=== PATIENT | female | born 1970 | race Caucasian/White ===

== ENCOUNTER → 2016-08-26 | Outpatient (CLI) | payer BC ==
--- NOTE | ~2016-08-26 | US6 ---
[facility] A Service of [facility] RADIOLOGY TEXT RESULTS PATIENT: TING DALEY LOCATION: CGUS : 70 UNIT #: [id number] AGE: [address]: SUJIT CERDA MD SEX: F ORDER DR: [id number] [facility]. [place], [place] [address] [id number] O MR#: [id number] Acc #: [id number] NAME: TING DALEY. : 1970 SEX: F STUDY DATE/TIME: 08/26/2016 10:28 UNIT: [facility] ROOM: STUDY DESCRIPTION: US Abdominal Limited Attending Physician: Sujit Cerda Referring Physician: Sujit Cerda Ordering Physician: Physician Non-Staff Primary Care Physician: Sjuit Cerda MEDICAL IMAGING REPORT This report is preliminary unless electronic signature is present EXAM Right upper quadrant ultrasound HISTORY Right upper quadrant pain for 1 year, progressively increasing. FINDINGS Ultrasound examination of the right upper quadrant demonstrates no gallstones, gallbladder wall thickening or gallbladder distension. No biliary ductal dilatation. The common bile duct measures 2 mm in diameter. No hepatic mass. No perihepatic fluid. Survey of the right kidney demonstrates no renal mass or hydronephrosis. The partly visualized pancreatic body is unremarkable. The pancreatic head and tail are incompletely visualized. IMPRESSION 1. Normal gallbladder. 2. No biliary dilatation. 3. Remainder of the right upper quadrant ultrasound evaluation is unremarkable. Dictated by... Josef Irving M.D. THIS IS AN ELECTRONICALLY VERIFIED REPORT Josef Irving M.D. at 08/28/2016 11:26 PM DFL/sharmila TD: 08/28/2016 09:23 JOB #: [id number] MEDICAL IMAGING REPORT [facility] A Service [facility] RADIOLOGY TEXT RESULTS PATIENT: TING DALEY LOCATION: [facility] : 70 UNIT #: [id number] AGE: [address]: SUJIT CERDA MD SEX: F ORDER DR: Page 1 of 1 COPY
== END | disposition home or self-care (01) ==
LOC: CGUS 07:45
DX: R10.11 Right upper quadrant pain (principal)
CPT/HCPCS: 76705

== ENCOUNTER → 2016-09-08 | Outpatient (CLI) | payer BC ==
--- NOTE | ~2016-09-08 | MY11 ---
[facility] A Service of [facility] RADIOLOGY TEXT RESULTS PATIENT: TING DALEY LOCATION: [facility] : [birth year] UNIT #: [id number] AGE: [address]: SUJIT CERDA MD SEX: F ORDER DR: [id number] [facility] [address] [facility]. [place], [place] [address] [id number] O MR#: [id number] Acc #: [id number] NAME: TING DALEY : 1970 SEX: F STUDY DATE/TIME: 09/08/2016 13:10 UNIT: [facility] ROOM: STUDY DESCRIPTION: MY Mammogram Screening Dig Primitivo Attending Physician: Sujit Cerda Referring Physician: Sujit Cerda Ordering Physician: Emanuel Not Listed Primary Care Physician: Sujit Cerda MEDICAL IMAGING REPORT This report is preliminary unless electronic signature is present EXAM Bilateral digital screening mammogram with CAD 09/08/2016 INDICATIONS Routine screening. No reported problems and no personal history of breast cancer. Family history positive in a maternal aunt. No surgeries. TECHNIQUE CC and MLO views of the breasts were obtained and reviewed with an FDA-approved CAD device COMPARISON 10/08/2009, , 12/26/2006. FINDINGS Breast parenchyma is composed of scattered fibroglandular densities. The pattern is unchanged. There is no new dominant nodule or mass in either breast. No new suspicious cluster of microcalcifications. There are faint benign and other benign dystrophic calcifications present in the breasts. IMPRESSION Benign screening mammogram; 1-year followup recommended. Patients over the age of 40 are entered into a reminder system with target due date for the next mammogram. A result letter will also be sent to the patient. BIRADS: 2 Benign finding. Dictated by... Pankaj Guzman M.D. [facility] A Service [facility] RADIOLOGY TEXT RESULTS PATIENT: TING DALEY LOCATION: [facility] : 70 UNIT #: [id number] AGE: [address]: SUJIT CERDA MD SEX: F ORDER DR: THIS IS AN ELECTRONICALLY VERIFIED REPORT Pankaj Guzman M.D. at 09/12/2016 7:30 AM Nil[place] TD: 09/09/2016 17:50 JOB #: [id number] MEDICAL IMAGING REPORT Page 1 of 1 COPY
== END | disposition home or self-care (01) ==
LOC: CWCC 12:43
DX: Z12.31 Encounter for screening mammogram for malignant neoplasm of breast (principal); Z80.3 Family history of malignant neoplasm of breast
CPT/HCPCS: G0202

== ENCOUNTER 2016-10-14 08:27 | Emergency (ER) | payer OTHER | END 2016-10-14 10:18 | disposition home or self-care (01) | LOC: CED 08:27 | DX: S61.213A Laceration without foreign body of left middle finger without damage to nail, initial encounter (principal); K21.9 Gastro-esophageal reflux disease without esophagitis; W45.8XXA Other foreign body or object entering through skin, initial encounter | CPT/HCPCS: 12001; 90471; 90715; 99283 ==

== ENCOUNTER 2016-10-21 08:54 | Emergency (ER) | payer OTHER | END 2016-10-21 10:04 | disposition home or self-care (01) | LOC: CED 08:54 | DX: S61.213D Laceration without foreign body of left middle finger without damage to nail, subsequent encounter (principal) | CPT/HCPCS: 99281 ==